=== PATIENT | female | born 1975 | race African-American/Black ===

== ENCOUNTER 2017-05-02 10:43 | Emergency (ER) | payer MEDICAID ==
[~2017-05-02] VITALS: Ht 165.1 cm; Wt 102.5 kg
[2017-05-02 10:43] VITALS: BP_SYST 146
--- NOTE | 2017-05-02 10:43 | NUR ---
Ambulatory to bed 7 accompanied by [facility]. Pt placed in chair, handcuffs removed by deputy per RN request.
--- NOTE | 2017-05-02 10:44 | NUR ---
Pt brought to bed 7 by [employer] officers for medical evaluation for high BS. Pt is aox4 has HX of DM, takes metformin and glyberide and lantus at night. No other injuries/complaints per pt or noted.
--- NOTE | 2017-05-02 10:45 | NUR ---
Dr. Reveles at bedside for evaluation
--- NOTE | 2017-05-02 10:52 | NUR ---
Patient given written and verbal discharge instructions and verbalizes understanding. ER MD discussed with patient the results and treatment provided. Patient in stable condition. ID arm band removed. No Rx given. Patient educated on pain management and to follow up with PMD. Pain Scale 0. Opportunity for questions provided and answered.
== END 2017-05-02 10:52 ==
LOC: SED 10:43
DX: E11.65 Type 2 diabetes mellitus with hyperglycemia (principal); Z88.5 Allergy status to narcotic agent; Z88.0 Allergy status to penicillin
CPT/HCPCS: 99283